=== PATIENT | male | born 1985 | race American Indian/Alaskan Native ===

== ENCOUNTER 2017-07-28 12:14 | Emergency (ER) | payer OTHER ==
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
[2017-07-28 19:27] VITALS: BP 120/82
[2017-07-28] MEDS ORDERED: FLEXERIL PO ONE (19:35)
== END 2017-07-28 19:57 | disposition home or self-care (01) ==
LOC: ED 12:14
DX: M25.531 Pain in right wrist (principal)
CPT/HCPCS: 99283